=== PATIENT | male | born 1985 ===

== ENCOUNTER 2018-08-29 10:09 | Emergency (ER) ==
[2018-08-29] MEDS ORDERED: SODIUM CHLORIDE 0.9% 1000ML 1,000 ML IV ONE ×3 (10:16→11:47)
[2018-08-29] MEDS ORDERED: ONDANSETRON HCL 4 MG/2 ML SOL IV ONE (10:17)
[2018-08-29] MEDS ORDERED: KETOROLAC TROMETHAMINE 30 MG/ML SOL IV ONE (10:18)
[2018-08-29] MEDS ORDERED: ONDANSETRON HCL 4 MG/2 ML SOL ONE (10:28)
[2018-08-29] MEDS ORDERED: KETOROLAC TROMETHAMINE 30 MG/ML SOL ONE (10:28)
[2018-08-29 10:34] LABS: BASOPHILS % (AUTO) 1 % (0-3); EOSINOPHILS % (AUTO) 0 % (0-9); HEMATOCRIT 44 % (39-53); HEMOGLOBIN 14.8 gm/dl (13.5-17.7); LYMPHOCYTES % (AUTO) 11.7 % (10-50); MEAN CORPUSCULAR HEMOGLOBIN 29.4 pg (27.0-32.0); MEAN CORPUSCULAR HGB CONC 33.4 gm/dl (32.0-36.0); MEAN CORPUSCULAR VOLUME 88 fL (80-100); MONOCYTES % (AUTO) 4.2 % (0-12); NEUTROPHILS % (AUTO) 83.2 % (37-80)
[2018-08-29 10:53] LABS: ALBUMIN 3.9 gm/dl (3.4-5.0); BILIRUBIN,TOTAL 0.3 mg/dl (0.2-1.0); CARBON DIOXIDE 21.8 mEq/L (21-32); CREATININE 1.08 mg/dl (0.80-1.30); POTASSIUM 3.8 mMol/L (3.5-5.1)
[2018-08-29 10:54] LABS: ALCOHOL 0.067 gm/dl (0.000-0.08)
[2018-08-29] MEDS ORDERED: METOCLOPRAMIDE HCL 5 MG/ML 10 MG in SODIUM CHLORIDE 0.9% 50 ML 50 ML IV ONE (11:10)
[2018-08-29] MEDS ORDERED: DIPHENHYDRAMINE 50 MG/ML SOL IV ONE (11:10)
[2018-08-29] MEDS ORDERED: METOCLOPRAMIDE HYDROCHLORIDE 5 MG/ML SOL ONE (11:17)
[2018-08-29] MEDS ORDERED: DIPHENHYDRAMINE 50 MG/ML SOL ONE (11:17)
[2018-08-29 11:24] LABS: APPEARANCE,URINE Clear; BILIRUBIN,URINE NEGATIVE (NEGATIVE); COLOR,URINE Yellow; GLUCOSE, URINE (UA) NEGATIVE (NEGATIVE); KETONES,URINE 1+ (NEGATIVE); LEUKOCYTE ESTERASE ,URINE NEGATIVE (NEGATIVE); NITRATE,URINE NEGATIVE (NEGATIVE); OCCULT BLOOD,URINE NEGATIVE (NEG-TRACE); UROBILINOGEN,URINE 0.2 (0.2-1.0 EU)
[2018-08-29 11:34] VITALS: BP 135/86; RESP 18; TEMP 96.5
[2018-08-29 11:37] LABS: CRYSTALS NEGATIVE (0-3 AVE/HPF); EPITHELIAL CELLS NEGATIVE (SQUAMOUS); RBC,URINE 0-1 (0-3AV/HPF); WBC,URINE 0-1 (0-5AV/HPF)
[2018-08-29 11:38] LABS: AMPHETAMINES NEGATIVE (NEGATIVE); BACTERIA 1+ (< 1+); BARBITUATES NEGATIVE (NEGATIVE); BENZODIAZEPINES NEGATIVE (NEGATIVE); CANNABINOL(THC) NEGATIVE (NEGATIVE); COCAINE(COC) NEGATIVE (NEGATIVE); METHADONE NEGATIVE (NEGATIVE); METHAMPHETAMINES NEGATIVE (NEGATIVE); OPIATES(OPI) NEGATIVE (NEGATIVE); OXYCODONE(OXY) NEGATIVE (NEGATIVE); PROPOXYPHENE(PPX) NEGATIVE (NEGATIVE); TRICYCLIC ANTIDEPRESSANTS NEGATIVE (NEGATIVE)
[2018-08-29] MEDS ORDERED: PROMETHAZINE HYDROCHLORIDE 25 MG/ML SOL IV ONE (11:50)
[2018-08-29] MEDS ORDERED: PROMETHAZINE HYDROCHLORIDE 25 MG/ML SOL ONE (11:54)
[2018-08-29 12:23] VITALS: PULSE 64; O2SAT 99
== END 2018-08-29 12:50 | disposition home or self-care (01) | DRG 392 ==
LOC: ED 10:09
DX: R11.2 Nausea with vomiting, unspecified (principal); E86.0 Dehydration; Z72.89 Other problems related to lifestyle; F12.90 Cannabis use, unspecified, uncomplicated; Y90.3 Blood alcohol level of 60-79 mg/100 ml
CPT/HCPCS: 36415; 80053; 80305; 80307; 81001; 85025; 96365; 96366; 96374; 96375; 99282; 99285; J1200; J1885; J2405; J2550; J2765